=== PATIENT | female | born 1980 | race Caucasian/White ===

== ENCOUNTER 2021-03-28 10:06 | Inpatient (IN) | payer BC ==
[~2021-03-28] VITALS: Ht 165.1 cm; Wt 68.5 kg
[~2021-03-28 10:06] MED LIST: LACT1CAP35 PO; MULT-257 PO
--- NOTE | 2021-03-28 10:12 | NUR ---
scuba instructor: pt declines WC
--- NOTE | 2021-03-28 10:28 | NUR ---
RUQ pain x2 months, worse in the last 2 days. denies N/V.
[2021-03-28] MEDS ORDERED: ONDANSETRON 2MG/ML, 2ML ONE (10:51)
[2021-03-28] MEDS ORDERED: HYDROmorphone 2 MG/ML, 1ML ONE ×2 (10:51→14:44)
--- NOTE | 2021-03-28 10:56 | NUR ---
PT MED NOTED AND IVF INFUSING W/O DIFFICULTY. US TECH AT BEDSIDE. SBAR RPT TO ANETTE MENDIETA
[2021-03-28] MEDS ORDERED: ONDANSETRON 2MG/ML, 2ML IVPush ONE (11:00)
[2021-03-28] MEDS ORDERED: SODIUM CHLORIDE FLUSH 10ML SYR IVF ONE (11:00)
[2021-03-28] MEDS ORDERED: HYDROmorphone 1 MG/ML, 1ML INJ IV ONE ×2 (11:00→14:00)
[2021-03-28] MEDS ORDERED: SODIUM CHLORIDE 0.9% 1,000ML IVBOLUS ONE (11:00)
--- NOTE | 2021-03-28 11:03 | NUR ---
report received from RNs Laura, this RN assuming care.
--- NOTE | 2021-03-28 11:17 | NUR ---
PT RESTING ON GURNEY, PAIN LEVEL 3/10. PT A&O, RESPS EVEN AND UNLABORED. BP AND SP02 MONITORS IN PLACE. CALL LIGHT IN REACH. FRIEND AT BEDSIDE. PT AWARE OF NEED FOR URINE SAMPLE, STATES SHE HAS NO URGE TO VOID AT THIS TIME.
[2021-03-28 11:25] LABS: BASOPHILS % (AUTO) 0 % (0-1); EOSINOPHILS % (AUTO) 0 % (1-7); LYMPHOCYTES % (AUTO) 14 % (22-44); MEAN CORPUSCULAR HEMOGLOBIN 31.8 pg (27.0-34.8); MEAN CORPUSCULAR HGB CONC 33.8 g/dL (32.4-35.8); MEAN PLATELET VOLUME 8.9 fL (7.4-10.4); MONOCYTES % (AUTO) 6 % (2-9); NEUTROPHILS % (AUTO) 79 % (42-75); PLATELET COUNT 285 x10^3/uL (130-400); RED BLOOD COUNT 4.65 x10^6/uL (3.82-5.3); RED CELL DISTRIBUTION WIDTH 12.9 % (9.6-15.2)
[2021-03-28 11:38] LABS: ALBUMIN 3.6 g/dL (3.4-5.0); ANION GAP 5 mmol/L (5-15); CALCIUM 8.7 mg/dL (8.5-10.1); CHLORIDE 109 mmol/L (98-107)
[2021-03-28 11:45] LABS: ALANINE AMINOTRANSFERASE 19 U/L (12-78); ALKALINE PHOSPHATASE 51 U/L (45-117); BILIRUBIN,TOTAL 0.8 mg/dL (0.2-1.0); CREATININE 0.84 mg/dL (0.55-1.02); TOTAL PROTEIN 7.4 g/dL (6.4-8.2)
--- NOTE | 2021-03-28 12:04 | NUR ---
PT NOTES RIGHT UPPER ABD PAIN STILL 3/10, DECLINES ADDITIONAL MEDICATION FOR PAIN. URINE SAMPLE PROVIDED. IVF COMPLETE. PT A&O, RESPS EVEN AND UNLABORED, NADN. BP AND SPO2 MONITORS IN PLACE. CALL LIGHT IN REACH. AWAITING URINE RESULTS AND DISPO.
[2021-03-28 12:24] LABS: MICROSCOPIC INDICATED
--- NOTE | 2021-03-28 12:39 | NUR ---
ALL RESULTS BACK , CHART UP FOR RECHECK. AWAITING MD AND DISPO.
[2021-03-28] MEDS ORDERED: CEFTRIAXONE 1,000 MG in DEXTROSE 5% 50 ML IVPB ONE ×2 (13:00→19:07)
--- NOTE | 2021-03-28 13:01 | NUR ---
orders for IV abx received, pt to receive abx s/p second blood culture.
--- NOTE | 2021-03-28 13:40 | NUR ---
rocephin initiated after blood cx drawn x 2. pt a&o, resps even and unlabored. bp and spo2 monitors in place. call light in reach. awaiting further orders from MD at this time.
[2021-03-28 14:23] LABS: CHOLESTEROL, TOTAL 164 mg/dL (140-239)
[2021-03-28 14:25] LABS: HDL CHOLESTEROL (DIRECT) 62 mg/dL (40-60)
[2021-03-28] MEDS ORDERED: MELATONIN 5 MG TABLET PO PRN (14:30)
[2021-03-28] MEDS ORDERED: ENALAPRILAT 1.25 MG/ML, 2ML IVPush PRN (14:30)
[2021-03-28] MEDS ORDERED: POLYETHYLENE GLYCOL 17 GM PACKET PO PRN (14:30)
[2021-03-28] MEDS: CEFTRIAXONE 1,000 MG in DEXTROSE 5% 50 ML IVPB ONE ×2 (14:41→15:00)
--- NOTE | 2021-03-28 14:51 | NUR ---
pt a&o, resps even and unlabored. pt notes right upper abd pain level increased to 6/10, medicated per emar. pt tolerated well. bp and spo2 monitors in place. spo2 96% on room air at this time. call light in reach. pt to be admitted to med surg once report exchanged, pt agreeable to poc.
[2021-03-28 15:02] LABS: CHOL/HDL RATIO 2.6; LDL/HDL RATIO 1.4 (0.5-3.0)
--- NOTE | 2021-03-28 15:09 | NUR ---
report given to ANETTE Elliott, this RN noted orders entered by hospitalist are rocephin 2 g bid IV. Receiving RN notified that pt has only received 1 g rocephin in ED. oxygen placed on pt at 2L/min via NC prior to transport as spo2 had dropped to 91% on room air.
[2021-03-28 16:03] VITALS: BP 106/65
[2021-03-28] MEDS: ONDANSETRON 2MG/ML, 2ML IVPush PRN (16:34)
[2021-03-28] MEDS: LACTATED RINGERS 1,000 ML IV SCH ×2 (17:14→22:30)
[2021-03-28] MEDS: morphine SULFATE 10 MG/ML, 1ML IVPush PRN (17:51)
[2021-03-28] MEDS ORDERED: OMNIPAQUE 350 MG/ML, 100ML BOTTLE ONE (18:22)
[2021-03-28 19:16] VITALS: BP 115/73
[2021-03-28] MEDS: ACETAMINOPHEN 325 MG TABLET PO PRN (20:22)
[2021-03-29] MEDS ORDERED: CEFTRIAXONE 2 GM in DEXTROSE 5% 50 ML IVPB SCH ×2 (01:00→13:00)
[2021-03-29 01:05] VITALS: BP 111/71
[2021-03-29] MEDS: ONDANSETRON 2MG/ML, 2ML IVPush PRN ×2 (04:53→09:32)
[2021-03-29] MEDS: LACTATED RINGERS 1,000 ML IV SCH ×2 (04:53→22:03)
[2021-03-29] MEDS: morphine SULFATE 10 MG/ML, 1ML IVPush PRN (04:54)
[2021-03-29 06:29] VITALS: BP 119/76
[2021-03-29 06:29] LABS: ALANINE AMINOTRANSFERASE 14 U/L (12-78); ALBUMIN 2.8 g/dL (3.4-5.0); ANION GAP 6 mmol/L (5-15); CALCIUM 8.2 mg/dL (8.5-10.1); CHLORIDE 110 mmol/L (98-107); CREATININE 0.65 mg/dL (0.55-1.02)
[2021-03-29 06:32] LABS: ALKALINE PHOSPHATASE 44 U/L (45-117); BILIRUBIN,TOTAL 0.7 mg/dL (0.2-1.0); TOTAL PROTEIN 6.3 g/dL (6.4-8.2)
[2021-03-29] MEDS: PANTOPRAZOLE 40MG TABLET PO SCH (09:33)
[2021-03-29] MEDS: CEFTRIAXONE 2 GM in DEXTROSE 5% 50 ML IVPB SCH (09:33)
[2021-03-29] MEDS: ACETAMINOPHEN 325 MG TABLET PO PRN ×2 (09:33→22:02)
[2021-03-29 12:18] VITALS: BP 112/63
[2021-03-29] MEDS ORDERED: SUMATRIPTAN 50 MG TABLET PO PRN (13:30)
[2021-03-29 22:08] VITALS: BP 120/74
[2021-03-30 01:24] VITALS: BP 106/61
[2021-03-30] MEDS: LACTATED RINGERS 1,000 ML IV SCH ×2 (06:00→14:00)
[2021-03-30 06:05] LABS: BASOPHILS % (AUTO) 1 % (0-1); EOSINOPHILS % (AUTO) 2 % (1-7); LYMPHOCYTES % (AUTO) 33 % (22-44); MEAN CORPUSCULAR HEMOGLOBIN 31.5 pg (27.0-34.8); MEAN CORPUSCULAR HGB CONC 33.6 g/dL (32.4-35.8); MEAN PLATELET VOLUME 8.4 fL (7.4-10.4); MONOCYTES % (AUTO) 6 % (2-9); NEUTROPHILS % (AUTO) 59 % (42-75); PLATELET COUNT 247 x10^3/uL (130-400); RED BLOOD COUNT 4.29 x10^6/uL (3.82-5.3)
[2021-03-30 06:23] LABS: ALBUMIN 2.8 g/dL (3.4-5.0); ANION GAP 7 mmol/L (5-15); CALCIUM 8.5 mg/dL (8.5-10.1); CHLORIDE 108 mmol/L (98-107)
[2021-03-30 06:27] LABS: ALANINE AMINOTRANSFERASE 13 U/L (12-78); ALKALINE PHOSPHATASE 42 U/L (45-117); BILIRUBIN,TOTAL 0.6 mg/dL (0.2-1.0); CREATININE 0.65 mg/dL (0.55-1.02); TOTAL PROTEIN 6.5 g/dL (6.4-8.2)
[2021-03-30 07:08] VITALS: BP 107/64
[2021-03-30] MEDS: PANTOPRAZOLE 40MG TABLET PO SCH (08:38)
[2021-03-30] MEDS: CEFTRIAXONE 2 GM in DEXTROSE 5% 50 ML IVPB SCH (08:38)
[2021-03-30] MEDS ORDERED: PANT40TA6 PO (11:08)
[2021-03-30 12:47] VITALS: BP 130/79
== END 2021-03-30 15:00 | disposition home or self-care (01) | DRG 439 ==
LOC: ED 14:47 → 3N 15:05
PROVIDERS: ADMIT Emergency Medicine; ATTEND Hospitalist
DX: K85.20 Alcohol induced acute pancreatitis without necrosis or infection (principal); N30.00 Acute cystitis without hematuria; F10.99 Alcohol use, unspecified with unspecified alcohol-induced disorder; Z88.6 Allergy status to analgesic agent; Z91.013 Allergy to seafood; G43.909 Migraine, unspecified, not intractable, without status migrainosus; Y90.9 Presence of alcohol in blood, level not specified
CPT/HCPCS: 36415; 74160; 76700; 80053; 80061; 81001; 82465; 83036; 83605; 83690; 83718; 83735; 84100; 84443; 85025; 87040; 87086; 96374; G0378; J0696; J1170; J2405; Q9967; J2270; J7030; J7120